=== PATIENT | male | born 1955 | race Caucasian/White ===

== ENCOUNTER 2017-09-15 15:03 | Emergency (ER) | payer BC ==
--- NOTE | 2017-09-15 15:37 | EDM.PDOC ---
ED HPI GENERAL MEDICAL PROBLEM - General Chief Complaint: Respiratory Problem Stated Complaint: COUGH X 2 WEEKS Time Seen by Provider: 09/15/17 15:11 Source of Information: Reports: Patient History Limitations: Reports: No Limitations - History of Present Illness INITIAL COMMENTS - FREE TEXT/NARRATIVE: 62-year-old male presents for evaluation and treatment of cough. Reports she's been coughing for about the last 2 weeks. States it is mostly dry but in the mornings is productive. Reports associated symptoms of headache and sinus pressure. He reports a runny nose. Denies any fevers, chills, nausea or vomiting. Denies any throat pain or ear pain. No Recent medication changes. Headache Pain Score (Numeric/FACES): 10 - Related Data Allergies Allergy/AdvReac Type Severity Reaction Status Date / Time No Known Allergies Allergy Verified 07/23/13 09:50 Home Meds: Home Meds Aspirin [Halfprin] 81 mg PO DAILY 09/15/17 [History] Azithromycin [Zithromax] 250 mg PO DAILY #6 tab 09/15/17 [Rx] Benzonatate [Tessalon Perle] 100 mg PO TID PRN #20 capsule 09/15/17 [Rx] Codeine/Promethazine [Phenergan with Codeine] 5 ml PO Q4HR PRN #120 ml 09/15/17 [Rx] atorvaSTATin [Lipitor] 10 mg PO DAILY 09/15/17 [History] metFORMIN [Glucophage XR] 500 mg PO BID 09/15/17 [History] Past Medical History Cardiovascular History: Reports: High Cholesterol Endocrine/Metabolic History: Reports: Diabetes, Type II Social & Family History - Tobacco Use Smoking Status *Q: Never Smoker - Caffeine Use Caffeine Use: Reports: Soda - Recreational Drug Use Recreational Drug Use: No ED ROS GENERAL - Review of Systems Review Of Systems: See Below Constitutional: Denies: Fever, Chills HEENT: Reports: Sinus Problem. Denies: Ear Pain, Throat Pain Respiratory: Reports: Cough, Sputum GI/Abdominal: Denies: Nausea, Vomiting Neurological: Reports: Headache ED EXAM, GENERAL - Physical Exam Exam: See Below Exam Limited By: No Limitations General Appearance: Alert, WD/WN, No Apparent Distress Ears: Normal External Exam, Normal Canal, Hearing Grossly Normal, Normal TMs Nose: Normal Inspection Throat/Mouth: Normal Inspection, Normal Lips, Normal Oropharynx, Normal Voice, No Airway Compromise Respiratory/Chest: No Respiratory Distress, Lungs Clear, Normal Breath Sounds Cardiovascular: Normal Peripheral Pulses, Regular Rate, Rhythm, No Murmur Neurological: Alert, Oriented, Normal Cognition Psychiatric: Normal Affect, Normal Mood Skin Exam: Warm, Dry, Normal Color Course - Vital Signs Last Recorded V/S: Last Vital Signs Temp 98.2 F 09/15/17 15:11 Pulse 92 09/15/17 15:11 Resp 20 09/15/17 15:11 BP 127/75 09/15/17 15:11 Pulse Ox 95 09/15/17 15:11 - Orders/Labs/Meds Orders: Active Orders 24 hr Category Date Time Status Chest 2V [CR] Stat Exams 09/15/17 16:10 Taken - Radiology Interpretation Free Text/Narrative:: chest xray shows no acute inrathoracic process. - Re-Assessments/Exams Free Text/Narrative Re-Assessment/Exam: 09/15/17 16:26 I reviewed the x-ray results with the patient. Will discharge him home at this time. Discharge instructions as documented. Departure - Departure Time of Disposition: 16:25 Disposition: Home, Self-Care 01 Condition: Fair Clinical Impression: Bronchitis - Discharge Information Prescriptions: Codeine/Promethazine [Phenergan with Codeine] 5 ml PO Q4HR PRN #120 ml PRN Reason: Cough Azithromycin [Zithromax] 250 mg PO DAILY #6 tab Benzonatate [Tessalon Perle] 100 mg PO TID PRN #20 capsule PRN Reason: Cough Referrals: Yuridia Peterson SERV[employer]K ASSOCIATE [Primary Care Provider] - Forms: ED Department Discharge Additional Instructions: Take the azithromycin as prescribed. take 1 tab PO day 1 followed by 2 tabs PO days 2 through 5 for 5 days of antibiotic total. Make sure you're drinking plenty of fluids Rest. Take the Tessalon Perles one or 2 tabs 3 times a day as needed for cough. Phenergan with codeine 5 mils every 4-6 hours as needed for cough. Codeine is habit-forming, take as little as needed to control your cough. Do not drive or operate machinery within 8 hours taking codeine follow-up with your family are provided for symptoms are not improved within 2 weeks. [facility] if your symptoms change or worsen.. y - My Orders Last 24 Hours: My Active Orders 09/15/17 16:10 Chest 2V [CR] Stat - Assessment/Plan Last 24 Hours: My Active Orders 09/15/17 16:10 Chest 2V [CR] Stat
--- NOTE | 2017-09-17 16:36 | CR ---
Chest: Two views of the chest were obtained. Comparison: Prior chest x-ray of 06/02/13. Heart size and mediastinum are within normal limits. Lung markings are slightly increased believed to be technique related. Lungs otherwise are clear but slightly hyperinflated. Mild degenerative change and scoliosis is present within the spine. Impression: 1. Nothing acute is suspected on two-view chest x-ray. Possible emphysematous change. Diagnostic code #2 MTDD
== END 2017-09-15 16:50 | disposition home or self-care (01) ==
LOC: JD.ED 15:03
DX: J40 Bronchitis, not specified as acute or chronic (principal); E78.00 Pure hypercholesterolemia, unspecified; I10 Essential (primary) hypertension; Z79.899 Other long term (current) drug therapy; Z79.84 Long term (current) use of oral hypoglycemic drugs
CPT/HCPCS: 71046; 71046-26; 99283

== ENCOUNTER 2019-01-04 15:35 | Emergency (ER) | payer BC ==
--- NOTE | 2019-01-04 16:15 | EDM.PDOC ---
ED HPI GENERAL MEDICAL PROBLEM - General Chief Complaint: Lower Extremity Injury/Pain Stated Complaint: L LEG INJURY Time Seen by Provider: 01/04/19 15:53 Source of Information: Reports: Patient, RN Notes Reviewed History Limitations: Reports: No Limitations - History of Present Illness INITIAL COMMENTS - FREE TEXT/NARRATIVE: Patient is a 63-year-old male who presents to the ED for evaluation of a left lower leg injury. The patient states that on Sunday, he hit his left leg with a sledgehammer, this did produce a wound, that has since scabbed over. There is mild redness around this wound. Patient states that the area is somewhat swollen, and he does have a history of cellulitis in this leg several years ago , and with the increased redness that is spreading down the leg, he wanted to make sure that there was no DVT or cellulitis present. His has been making him take Tylenol and naproxen, and aspirin for pain relief, he states this does help quite a bit. He can walk on the extremity just fine, and is not having trouble with ambulation at this time. He denies any fevers or chills that he has had. - Related Data Allergies Allergy/AdvReac Type Severity Reaction Status Date / Time No Known Allergies Allergy Verified 01/04/19 15:49 Home Meds: Home Meds Lisinopril 2.5 mg PO DAILY 01/16/18 [History] atorvaSTATin Calcium [Atorvastatin Calcium] 10 mg PO DAILY 01/16/18 [History] metFORMIN HCl [Metformin HCl] 1,000 mg PO BID 01/16/18 [History] Aspirin [Aspirin EC] 325 mg PO Q2D 01/04/19 [History] Doxycycline [Vibramycin] 100 mg PO BID #20 tab 01/04/19 [Rx] Past Medical History HEENT History: Reports: Other (See Below) Other HEENT History: dental implants Cardiovascular History: Reports: High Cholesterol Respiratory History: Reports: None Genitourinary History: Reports: None ADVERTISING ASSOCIATE History: Reports: None Musculoskeletal History: Reports: Other (See Below) Other Musculoskeletal History: ulnar nerve neuroplasty bilateral Neurological History: Reports: None Psychiatric History: Reports: None Endocrine/Metabolic History: Reports: Diabetes, Type II Hematologic History: Reports: None Immunologic History: Reports: None Oncologic (Cancer) History: Reports: None Dermatologic History: Reports: None - Past Surgical History Head Surgeries/Procedures: Reports: None Cardiovascular Surgical History: Reports: None Respiratory Surgical History: Reports: None GI Surgical History: Reports: Appendectomy, Colonoscopy, Other (See Below) Other GI Surgeries/Procedures: splenectomy Female Surgical History: Reports: None Male Surgical History: Reports: None Endocrine Surgical History: Reports: None Neurological Surgical History: Reports: None Musculoskeletal Surgical History: Reports: None Oncologic Surgical History: Reports: None Dermatological Surgical History: Reports: None Social & Family History - Tobacco Use Smoking Status *Q: Never Smoker - Caffeine Use Caffeine Use: Reports: None - Recreational Drug Use Recreational Drug Use: No Review of Systems - Review of Systems Review Of Systems: See Below Constitutional: Denies: Chills, Fever Eyes: Reports: No Symptoms Ears: Reports: No Symptoms Nose: Reports: No Symptoms Mouth/Throat: Reports: No Symptoms Respiratory: Denies: Shortness of Breath, Cough Cardiovascular: Denies: Chest Pain GI/Abdominal: Reports: No Symptoms Genitourinary: Reports: No Symptoms Musculoskeletal: Reports: Leg Pain (mild left lower leg pain) Skin: Reports: Erythema (to left lower leg with mild swelling noted.), Wound ( 2x3cm area of healing wound that is scabbed ) Neurological: Denies: Numbness, Tingling Psychiatric: Reports: No Symptoms ED EXAM, GENERAL - Physical Exam Exam: See Below Exam Limited By: No Limitations General Appearance: Alert, WD/WN, No Apparent Distress Eye Exam: Bilateral Eye: EOMI, Normal Inspection, PERRL Nose: Normal Inspection Throat/Mouth: Normal Inspection, Normal Lips, Normal Teeth, Normal Gums, Normal Oropharynx, Normal Voice, No Airway Compromise Head: Atraumatic, Normocephalic Neck: Normal Inspection Respiratory/Chest: No Respiratory Distress, Lungs Clear, Normal Breath Sounds, No Accessory Muscle Use, Chest Non-Tender Cardiovascular: Normal Peripheral Pulses, Regular Rate, Rhythm, No Murmur Peripheral Pulses: 3+: Radial (R), Femoral (L), Dorsalis Pedis (L), Dorsalis Pedis (R) GI/Abdominal: Normal Bowel Sounds, Soft, Non-Tender, No Distention Extremities: Normal Inspection (of right leg), Normal Range of Motion, Normal Capillary Refill, Increased Warmth (with associated redness of medial left lower leg) Neurological: Alert, Oriented, Normal Cognition, No Motor/Sensory Deficits Psychiatric: Normal Affect, Normal Mood Skin Exam: Warm, Dry, Intact (healing wound on medial left lower leg), Erythema (area of redness to L lower medial mid pascal area. This area is slightly warmer to the touch than the surrounding area.). No: No Rash Course - Vital Signs Last Recorded V/S: Last Vital Signs Temp 97.9 F 01/04/19 15:45 Pulse 73 01/04/19 15:45 Resp 18 01/04/19 15:45 BP 134/79 01/04/19 15:45 Pulse Ox 96 01/04/19 15:45 - Re-Assessments/Exams Free Text/Narrative Re-Assessment/Exam: 01/04/19 16:14 Patient presents to the ED for evaluation of a left lower leg injury. Due to the patient's history of cellulitis in the past, the area is red and is suspicious for cellulitis, the area is slightly warmer than the rest of the leg. However due to the trauma of the sledge hammer hitting his left leg I will order ultrasound to rule out DVT versus cellulitis at this time. He denies any fevers or chills, he is not requesting an x-ray of the tib-fib, I did offer to do this, but he declined. 01/04/19 17:57 Ultrasound is done, and demonstrates no evidence of DVT in the left lower extremity or within the right common femoral vein. At this point in time the redness is suspicious for a cellulitis, we will provide the patient with antibiotics, and have him follow-up in a few days' time to see if the redness is decreasing. Departure - Departure Time of Disposition: 18:04 Disposition: Home, Self-Care 01 Condition: Fair Clinical Impression: Cellulitis Qualifiers: Site of cellulitis: extremity Site of cellulitis of extremity: lower extremity Laterality: left Qualified Code(s): L03.116 - Cellulitis of left lower limb - Discharge Information *PRESCRIPTION DRUG MONITORING PROGRAM REVIEWED*: No *COPY OF PRESCRIPTION DRUG MONITORING REPORT IN PATIENT REESE: No Prescriptions: Doxycycline [Vibramycin] 100 mg PO BID #20 tab Instructions: Cellulitis, Adult, [id number] Referrals: Zach Curtis MD [Primary Care Provider] - Forms: ED Department Discharge Additional Instructions: You were evaluated in the ED today regarding your reddened left lower leg. An ultrasound was done of the area, and demonstrates no sign of a DVT. The area itself is suspicious for cellulitis in nature, he will be started on an antibiotic, doxycycline, 100 mg twice a day 10 days. This was electronically prescribed to the [place] [facility] located in the [employer] store, they are open until 10 PM tonight January 04. Recommend that you follow up with your primary care provider within the next week, to make sure that the infection is getting better, and that the redness is decreasing. Please return to the ED if your symptoms should change or worsen.
--- NOTE | 2019-01-04 17:08 | US ---
Left lower extremity deep venous ultrasound: Duplex and color flow imaging was obtained of the left common femoral, proximal greater saphenous, superficial femoral, popliteal, posterior tibial and peroneal veins. Right common femoral vein is also evaluated. Findings: Normal phasic flow, augmentation and compression is seen. Impression: 1. No evidence of deep venous thrombosis is seen within the left lower extremity or within the right common femoral vein. Diagnostic code #1
== END 2019-01-04 18:15 | disposition home or self-care (01) ==
LOC: JD.ED 15:35
DX: L03.116 Cellulitis of left lower limb (principal); E78.00 Pure hypercholesterolemia, unspecified; E11.9 Type 2 diabetes mellitus without complications; Z79.84 Long term (current) use of oral hypoglycemic drugs; Z79.82 Long term (current) use of aspirin; Z79.899 Other long term (current) drug therapy
CPT/HCPCS: 93971-26-LT; 93971-LT; 99283-25